=== PATIENT | male | born 1985 | race Caucasian/White ===

== ENCOUNTER 2024-11-03 19:21 | Inpatient (IN) | payer OTHER, SELFPAY ==
--- OUTSIDE RECORDS SUMMARY | 2024-11-03 19:27 | XMS_ITS | Clinical Summary ---
Author Organization [facility] [employer] [facility] it Address [address] [place] [address] Care Team Providers Care Therapeutic Radiologist Name Role Phone Dequan Alicia MD Primary Care Provider [phone] Social History Tobacco Use Types Packs/Day Years Used Date Smoking Tobacco: Never Assessed Sex and Gender Information Value Date Recorded Sex Assigned at Not on file Legal Sex Male 8:26 AM EST Gender Identity Not on file Sexual Orientation Not on file Plan of Treatment Health Maintenance Due Date Last Done Comments DTaP,Tdap,and Td Vaccines (1 - Tdap) 2002 Hepatitis B Vaccines (1 of 3 - 19+ 3-dose series) 2002 Cholesterol Screening (Lipid Panel) 10/12/2023 Depression Screening 10/12/2023 HIV Screening 10/12/2023 Hepatitis C Screening 10/12/2023 Social Influencers of Health Screening 10/12/2023 COVID-19 Vaccine (2023-2 5 season) 2024 Influenza Vaccine (#1) 2024 HIB Vaccines Aged Out No longer eligi ble based on patient's age to complete this topic HPV Vaccines Aged Out No longer eligi ble based on patient's age to complete this topic Hepatitis A Vaccines Aged Out No long er eligible based on patient's age to complete this topic IPV Vaccines Aged Out No longer eligi ble based on patient's age to complete this topic MMR Vaccines Aged Out No longer eligi ble based on patient's age to complete this topic Meningococcal ACWY Vaccine Aged Out N o longer eligible based on patient's age to complete this topic Meningococcal B Vacine Aged Out No lo nger eligible based on patient's age to complete this topic Pneumococcal Vaccine: Pediat rics (0 to 5 Years) and At-Risk Patients (6 to 64 Years) Aged Out No longer eligible b ased on patient's age to complete this topic RSV Immunization Patients Un jeet 20 months Aged Out No longer eligible b ased on patient's age to complete this topic Varicella Vaccines Aged Out No longer eligible based on patient's age to complete this topic Care Teams Therapeutic Radiologist Relationship Specialty Start Date End Date Dequan Alicia MD [address] [place] [address] [address] [place] [address] PCP - General Internal Medicine 07/29/16
[2024-11-03 21:10] VITALS: BMI 29.2
[2024-11-03 21:12] VITALS: BP 124/82; PULSE 85; RESP 16; TEMP 37.3; O2SAT 99
[2024-11-03] MEDS: hydrOXYzine HCL 25 MG TABLET PO (23:37)
[2024-11-03] MEDS: traZODone HCL 50 MG TABLET PO (23:37)
--- NOTE | 2024-11-04 01:42 | PC.ADMIT ---
Parish Mccloud is a 39 yo male, admitted from [facility] to M3 unit on a CV for the treatment of unspecified depressive disorder and SI. Pt has a medical Hx of HTN, Heart failure, Mycobacterium avium infection, non ischemic cardiomyopathy and anal fistula x2. He was originally diagnosed of HIV suddenly in March, loss his job and his health rapidly declined.He was presented to [facility] crisis after endorsing SI with a plan to OD on medications. Parish has been experiencing worsening depression, insomnia and aggression over the last few weeks. On unit assessment, Pt was calm and cooperative, A & O x4, Affect is anxious, denies SI/HI/AV/VH. He states I cannot kill myself, I was only frustrated b/c I loss my job and I have no money to take care of myself . Safety/skin check shows a wound draining clear fluids on the Lt pelvic area and anal fistula x2. Pt was very reluctant to stay on the unit b/c his bed was not comfortable for him. He states I have cardiac dx/conditions and I need a special/cardiac bed. He was however encouraged to sleep on the bed with his head raised/supported with pillows. He signed/filled some admission papers including menu, some release of informations forms, and understanding of valuables. Hospitalist contacted for consultation, treatment plans and safety tools initiated. Pt is a high fall risks and ambulates with a walker, he is placed on 5 minutes safety check.
--- NOTE | 2024-11-04 06:42 | HO.PM.IMCN ---
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 He presentied voluntarily via EMS to [facility] ED after endorsing SI. He has been experiencing worsening depression, insomnia, and aggression over the last few weeks. He has been severely depressed over the last 2 months due to his medical problems and being in/out of the hospital very often. He was originally diagnosed with HIV suddenly in March 2024, lost his job at [employer], and his health has rapidly declined and is on multiple medications. His mood have been low, he has only been sleeping 1-2 hours per night, and his appetite has been poor. At one point over the last few weeks he locked himself in his room for 5 days and didn't want to leave. He is also endorsing significant anxiety with racing thoughts keeping him up at night. He has occasional panic attacks, his last was 10 days ago during which he experienced shortness of breath, tunnel vision, and passed out.? ? He is endorsing active suicidal ideation with a plan to overdose on his medications. The thoughts are persistent and have worsened in recent days. He is unsure how likely he would be to act on it if he were to return home but is looking for more help as he feels like everything is too overwhelming right now. No history of suicide attempts or previous psychiatric hospitalizations. Is currently taking Lexapro and Trazodone as prescribed, feels like they helped at first but are not helping now.? ? Denying any HI or AVH.? In addition to his SI the patient was reporting daily headaches it is primarily on his forehead but radiates to the middle of his head. He describes it as a pressure, 9 of 10 in severity, and different from his usual headaches. No migraine history and not associated with photo or phonophobia. Has not tried taking any medications for pain relief. No head trauma.? ? He is also endorsing a 2 month history of vomiting after meals, worsened over the last month. He vomits immediately after eating almost all solid food. Vomit appears as food and is nonbloody and nonbilious. Better at keeping liquids down. Still having regular bowel movements which are nonbloody. No abdominal pain or fevers. While evaluating this morning, didn't offer any other history, still endorses depression and suicidal thoughts, no headache mentioned at that time and was not vomitting, no shortness of breath. He uses a walker to ambulate ? 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 Home medications: from [facility] records Home MedicationsamLODIPine 2.5 mg oral tablet, See Instructions, 5 refills Asmanex HFA 100 mcg/inh inhalation aerosol, 2 puffs, Inhalation, 2 times a day, 6 refills benzonatate 100 mg oral capsule, 100 mg= 1 capsule, By Mouth, 3 times a day bictegravir/emtricitabine/tenofovir 50 mg-200 mg-25 mg oral tablet, 1 tablet, By Mouth, Daily, 3 refills clotrimazole 1% topical cream, 1 application, Topically, 2 times a day, 1 refills dapagliflozin 10 mg oral tablet, 10 mg= 1 tablet, By Mouth, Daily, 11 refills diclofenac 1% topical gel, 1 application, Topically, 4 times a day, 3 refills docusate sodium 100 mg oral capsule, 100 mg= 1 capsule, By Mouth, 2 times a day, PRN, 3 refills Entresto 97 mg-103 mg oral tablet, See Instructions, 5 refills escitalopram 10 mg oral tablet, 10 mg= 1 tablet, By Mouth, Daily, 3 refills ethambutol 400 mg oral tablet, 1200 mg= 3 tablet, By Mouth, Daily, 1 refills furosemide 20 mg oral tablet, 1 capsule, By Mouth, Daily in AM, 3 refills ivabradine 5 mg oral tablet, See Instructions, 2 refills metoprolol 200 mg oral tablet, extended release, See Instructions, 1 refills MiraLax oral powder for reconstitution, 17 Gm, By Mouth, Daily, 5 refills Protonix 40 mg oral delayed release tablet, 40 mg, By Mouth, Daily, 3 refills spironolactone 25 mg oral tablet, 25 mg= 1 tablet, By Mouth, Daily, 3 refills sulfamethoxazole-trimethoprim 800 mg-160 mg oral tablet, 1 tablet, By Mouth, Daily, 3 refills traZODone 50 mg oral tablet, 50 mg= 1 tablet, By Mouth, Daily at bedtime, 3 refills Ventolin HFA 108 mcg/inh inhalation aerosol with adapter, 2 puffs, Inhalation, 4 times a day, PRN, 11 refills Healthcare maintenance: Vaccines: -Influenza: 07/2024 -COVID: booster 07/2024 -Pneumonia: PCV 20 07/2024 -Meningitis: 1st?dose 08/03/2024? -Hep B:?immune? -Hep A:?HAV Ab neg (07/2024)???needs vaccine Cancer screening:? -Will need anal Ca screening - defer to colorectal l? Review of Systems Review of Systems: Gen: no fever, no headache, Resp: no sob, no cough CV: no chest, no NICOLE, no leg edema GI: No n/v at that time, gets vomiting with meals at times, no abd pain Neuro: No confusion Yes all other systems are reviewed and are negative PMFSH Social History Household Members: Family Housing: Apartment Do you presently have visiting nurse or other home services: No Patient Tobacco Use Status: Current everyday Tobacco user Tobacco use type: Cigarette Smoked in Last 30 Days: Yes e-Cigarette/Vaping Use: Never Used Patient Interested in Nicotine Replacement: Yes Patient Given Instructions on How to Stop Smoking: No Second Hand Smoke Exposure: No Use of substances other than those prescribed or required for medical reasons: No Currently Displaying Signs/Symptoms of Drug Intoxication Withdrawal: No Any prior treatment program specific to substance use: No Have you been hit, kicked, punched, or otherwise hurt by someone within the past year? If so, by whom?: No Do you feel safe in your current relationship?: No Current Relationship Is there a partner from a previous relationship who is making you feel unsafe now?: No Are you made to feel afraid or neglected: No Advance Directives: No Advance Directives Information Provided: No Do you have thoughts of harming others: None Do you have a plan to hurt others: No Plan Recently lost weight without trying: No Eating poorly because of decreased appetite: Yes Nutrition Risks: No Nutritional Risk Poor oral hygiene: No Meds Allergies Allergy/AdvReac Type Severity Reaction Status Date / Time acetaminophen [From Percocet] Allergy Anaphylaxis Verified 11/03/24 20:52 oxycodone [From Percocet] Allergy Anaphylaxis Verified 11/03/24 20:52 Active Medications: Current Medications Al Hydroxide/Mg Hydroxide (Magnesium Hydrox/Alum Hydrox 30 Ml Oral.Susp) 30 ml PO Q6H PRN PRN Reason: Heartburn/Nausea Albuterol Sulfate (Albuterol Sulfate 90 Mcg 8 Gm Inhaler) 2 puff INHALE Q4H PRN PRN Reason: Shortness of Breath/Wheezing Amlodipine Besylate (Amlodipine Besylate 5 Mg Tablet) 5 mg PO DAILY [facility]; Protocol Azithromycin (Azithromycin 500 Mg Tablet) 500 mg PO DAILY [facility] Bictegravir/Emtricitabine/Tenofovir (Bictegrav/Emtricit/Tenofov Ala Tablet) 1 tab PO DAILY [facility] Clotrimazole (Clotrimazole 1 % Cream 15 Gm Tube) 1 appl TOPICAL BID [facility]; Protocol Docusate Sodium (Docusate Sodium 100 Mg Capsule) 100 mg PO DAILY [facility] Last Admin: 11/04/24 01:09 Dose: Not Given Escitalopram Oxalate (Escitalopram Oxalate 20 Mg Tablet) 100 mg PO DAILY [facility] Furosemide (Furosemide 20 Mg Tablet) 20 mg PO DAILY [facility]; Protocol Hydroxyzine HCl (Hydroxyzine Hcl 25 Mg Tablet) 25 mg PO Q6H PRN PRN Reason: mild anxiety Last Admin: 11/03/24 23:37 Dose: 25 mg Lidocaine (Lidocaine 4 % Patch Adh..Patch) 1 patch TRANSDERMA DAILY [facility] Magnesium Hydroxide (Milk Of Magnesia 30 Ml Oral.Susp) 30 ml PO DAILY PRN PRN Reason: Constipation Metoprolol Succinate (Metoprolol Succinate Er 100 Mg Tab.Er.24h) 200 mg PO DAILY [facility]; Protocol Morphine Sulfate (Morphine Sulfate Immed Release 15 Mg Tablet) 15 mg PO Q4H PRN PRN Reason: Pain, Moderate(Pain Scale 4-6) Nicotine (Nicotine 21 Mg Patch.Td24) 21 mg TRANSDERMA DAILY PRN PRN Reason: smoking cessation Nicotine Polacrilex (Nicotine Polacrilex 2 Mg Gum) 4 mg BUCCAL Q2H PRN PRN Reason: Nicotine Cravings Nicotine Polacrilex (Nicotine Polacrilex 2 Mg Gum) 4 mg BUCCAL Q2H PRN PRN Reason: SMOKING CESSATION Non-Formulary Medication (Dapagliflozin Propanediol [Farxiga]) 10 mg PO DAILY [facility] Non-Formulary Medication (Diclofenac Sodium [Arthritis Pain (Diclofenac)]) 1 gm TOPICAL QID PRN PRN Reason: Pain, Moderate Non-Formulary Medication (Ethambutol) 400 mg PO 1XD [facility] Non-Formulary Medication (Ivabradine) 5 mg PO 1XD [facility] Non-Formulary Medication (Mometasone [Asmanex Hfa]) 100 mcg INHALE NEEDED [facility] Olanzapine (Olanzapine 5 Mg Tablet) 5 mg PO TID PRN PRN Reason: agitation Omeprazole (Omeprazole 20 Mg Capsule.Dr) 20 mg PO DAILY [facility] Polyethylene Glycol (Polyethylene Glycol 3350 17 Gm Powd.Pack) 17 gm PO BID [facility] Sacubitril/Valsartan (Sacubitril/Valsartan 97/103 1 Tab Tablet) 1 tab PO DAILY [facility]; Protocol Spironolactone (Spironolactone 25 Mg Tablet) 25 mg PO DAILY [facility]; Protocol Trazodone HCl (Trazodone Hcl 50 Mg Tablet) 50 mg PO BEDTIME MRX1 PRN PRN Reason: Insomnia Last Admin: 11/03/24 23:37 Dose: 50 mg Trazodone HCl (Trazodone Hcl 50 Mg Tablet) 50 mg PO BEDTIME [facility] Trimethoprim/Sulfamethoxazole (Sulfamethox/Trimeth 800/160 Tablet) 1 tab PO DAILY [facility] Home Medications ?Medication ?Instructions ?Recorded ?Confirmed ?Last Taken ?Type albuterol sulfate 90 mcg/actuation 90 mcg inhalation NEEDED 11/03/24 11/03/24 Unknown History aerosol inhaler (Ventolin HFA) amlodipine 5 mg tablet (Norvasc) 5 mg PO DAILY 11/03/24 11/03/24 Unknown History azithromycin 500 mg tablet 500 mg PO DAILY 11/03/24 11/03/24 Unknown History (Zithromax) bictegravir 50 mg-emtricitabine 50 tab PO DAILY 11/03/24 11/03/24 Unknown History 200 mg-tenofovir alafenam 25 mg tablet (Biktarvy) clotrimazole 1 % topical cream 1 appl topical BID 11/03/24 11/03/24 1 Day Ago History (Clotrimazole AF) ~11/02/24 dapagliflozin propanediol 10 mg 10 mg PO DAILY 11/03/24 11/03/24 Unknown History tablet (Farxiga) diclofenac sodium 1 % topical gel 1 g topical QID PRN Pain, Moderate 11/03/24 11/03/24 Unknown History (Arthritis Pain (diclofenac)) docusate sodium 100 mg capsule 100 mg PO 1XD 11/03/24 11/03/24 Unknown History (Colace) escitalopram oxalate 10 mg tablet 100 mg PO DAILY 11/03/24 11/03/24 Unknown History (Lexapro) ethambutol 400 mg tablet 400 mg PO 1XD 11/03/24 11/03/24 Unknown History furosemide 20 mg tablet 20 mg PO DAILY 11/03/24 11/03/24 Unknown History ivabradine 5 mg tablet 5 mg PO 1XD 11/03/24 11/03/24 Unknown History lidocaine 5 % topical patch 1 patch topical DAILY 11/03/24 11/04/24 Unknown History (DermacinRx Lidocan) metoprolol succinate 200 mg 200 mg PO DAILY 11/03/24 11/03/24 Unknown History tablet,extended release 24 hr (Toprol XL) mometasone 100 mcg/actuation HFA 100 mcg inhalation NEEDED 11/03/24 11/03/24 Unknown History aerosol inhaler (Asmanex HFA) morphine 15 mg immediate release 15 mg PO NEEDED 11/03/24 11/03/24 Unknown History tablet nicotine (polacrilex) 4 mg gum 4 mg PO Q2-3H PRN Smoking Cessation 11/03/24 11/03/24 Unknown History pantoprazole 40 mg tablet,delayed 40 mg PO DAILY 11/03/24 11/03/24 Unknown History release (Protonix) polyethylene glycol 3350 17 17 g PO BID 11/03/24 11/03/24 Unknown History gram/dose oral powder (Miralax) sacubitril 97 mg-valsartan 103 mg 1 tab PO 1XD 11/03/24 11/04/24 Unknown History tablet (Entresto) spironolactone 25 mg tablet 25 mg PO DAILY 11/03/24 11/03/24 Unknown History (Aldactone) sulfamethoxazole 800 160 tab PO DAILY 11/03/24 11/03/24 Unknown History mg-trimethoprim 160 mg tablet (Bactrim DS) trazodone 50 mg tablet 50 mg PO BEDTIME 11/03/24 11/03/24 Unknown History Physical Exam Vital Signs and Narrative: Vital Signs: Last Vital Signs Temp 99.1 F 11/03/24 21:12 Pulse 85 11/03/24 21:12 Resp 16 11/03/24 21:12 BP 124/82 11/03/24 21:12 Pulse Ox 99 11/03/24 21:12 O2 Del Method Room Air 11/03/24 21:12 BMI result Body Mass Index 29.2 Const: Other: Gen: no distress, alert and oriented x 3 HEENT: No pharyngitis or? thrush CV: regular rate, no murmurs/rubs, regular, trace pedal edema Pulm: breathing comfortably, no rales Extrem: trace leg edema Gait: antalgic with walker Skin: midline buttock area fistula noted with mild non-purulent drainage, a righ groin small open are with mild non purulent drainage Neuro: no focal deficit, CN 2 to 12 intact Psych: affect mildly depressed, endorses SI Results Labs 11/04/24 07:57 Assessment and Plan (1) Major depression, recurrent: Status: Acute (2) HIV (human immunodeficiency virus infection): Status: Acute (3) Cardiomyopathy: Status: Acute Plan 39-year-old male with a history of HIV/AIDS (diagnosed 04/2024 with CD4 36 and Pneumocystis pneumonia; rapid immune reconstitution on ART), complicated by localized right groin MAC lymphadenitis IRIS, HIV-associated cardiomyopathy/HFrEF (EF 35%), phimosis status post recent circumcision, anal fistula, GERD, and post-herpetic neuralgia. Presently admitted with depression/anxiety with suicidal ideation. While he has a complicated medical history, there are no acute issues at this time. He should continue medical management as prior to hospitalization and follow up with specialists as previously planned on an outpatient basis unless circumstances change. 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 -AFB Cx 08/29/ confirmed MAC.? Presumed susceptible to azithro based on clarithro susceptibilty and clinical response.? Note unable to test for ethambutol susceptibility.? -Continue??Azithromycin 500mg qD plus Ethambutol 15mg/kg once daily?(dosed as 3x 400mg tablets plus 1x 100mg tablets, taken together, once daily, total daily dose = 1,300mg).??Started 08/07/2024.? -Sees optometry monthly at [facility] to monitor for signs of ethambutol toxicity.? -Treatment course is typically a minimum of 12 months (and minimally CD4 > 100 x 6 mos on ART) #HIV/AIDS (dx 04/20/2024 w/CD4 36 and?pneumocystis) #Rapid immune reconstitution Syndrome (IRIS) -At diagnosis: CD4 36%, VL 240K.? 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 -ART: Biktarvy (FTC/TAF/BIC) started 04/2024.? Incredibly, HIV VL down to 150?(05/16) from?pre-tx baseline of?239,000 (04/20) in just 4 weeks; during the same time, CD4 up?to 261 (05/16)?from 36 (04/20).??? -Hx severe pneumocystis PNA 04/2024.??Discontinue 2ary ppx for PJP?(TMP-SMX DS qD)?given CD4 > 200 for >3 mos w/ virologic suprpession on ART -Continue services of [facility] for blister packing and delivery of all meds.? [place] in [place] 05/2024.? -Income: [place] through 09/2023; I completed [facility] paperwork? to extend for an additional 6 mos.??Applying for?long-term disability with social security;?we faxed necessary med records to social security today -Housing: following [facility], since 06/2024.? Diagnosis note provided 07/2024. #Phimosis -S/p uncomplicated circumcision, 09/2024. Healing as expected #Hx of anal fistulae w/ mycobacterium avium: -EUA 05/2023 for intersphincteric fistula in posterior midline and superficial fistula in posterior lateral with fistulotomy and marsupialization x 2.??Path showed?Mycobacterium avium;?see above? -MRI Pelvis 06/2024 showed no drainable abscess nor mass.? -Colorectal follow-up 08/2024: plan for colonoscopy to eval infection v. neoplasm followed #Post-herpetic neuralgia: -Lidocaine patch and morphine for pain at site of prior zoster #Non-ischemic cardiomyopathy associated with HIV, EF around 35% -Continue meds Norvasc, metoprolol, Aldactone, lasix, jardiance, entresto will
[2024-11-04 07:50] VITALS: BP 113/76; PULSE 84; RESP 16; TEMP 36.9; O2SAT 97
[2024-11-04 08:45] LABS: Estimated Average Glucose 91 mg/dL; Hemoglobin A1C 91.7633 umol/L; Hemoglobin A1c % 4.8 % (<6.0); Total Hemoglobin (HGBA1C) 3128.3282 umol/L
[2024-11-04 09:01] VITALS: BP 113/78
[2024-11-04] MEDS: Furosemide 20 MG TABLET PO (09:01)
[2024-11-04 09:02] VITALS: BP 113/78
[2024-11-04] MEDS: Sulfamethox/Trimeth 800/160 TABLET 1 TAB PO (09:02)
[2024-11-04] MEDS: Omeprazole 20 MG CAPSULE.DR PO (09:02)
[2024-11-04] MEDS: Spironolactone 25 MG TABLET PO (09:02)
[2024-11-04] MEDS: amLODIPine Besylate 5 MG TABLET PO (09:02)
[2024-11-04] MEDS: Escitalopram Oxalate 20 MG TABLET 100 MG PO (09:02)
[2024-11-04 09:03] LABS: Alanine Aminotransferase 20 U/L (0-40); Albumin Level 3.8 g/dL (3.5-5.0); Alkaline Phosphatase 82 U/L (39-117); Anion Gap 14 (12-20); Aspartate Amino Transferase 24 U/L (5-37); Bilirubin Total 0.7 mg/dL (0.0-1.0); Blood Urea Nitrogen 20 mg/dL (9-16); Calcium 9.3 mg/dL (8.4-10.2); Carbon Dioxide 24 mmol/L (22-29); Chloride 103 mmol/L (96-108); Cholesterol 179 mg/dL (<200); Creatinine Clr Calc Pharmacy 94.8; Estimated Glomerular Filt Rate > 60; Glucose Random 95 mg/dL (60-115); HDL Cholesterol 27 mg/dL (>40); LDL Cholesterol Calculated 112 mg/dL (<100); Potassium 4.3 mmol/L (3.3-5.1); Sodium 137 mmol/L (135-145); Triglycerides 200 mg/dL (<150)
[2024-11-04] MEDS: Docusate Sodium 100 MG CAPSULE PO (09:03)
[2024-11-04 10:24] VITALS: BP 118/74; PULSE 76
[2024-11-04] MEDS: Sacubitril/Valsartan 97/103 1 TAB TABLET PO (10:25)
[2024-11-04] MEDS: Empagliflozin 10 MG TABLET PO (10:25)
[2024-11-04] MEDS: Metoprolol Succinate ER 100 MG TAB.ER.24H 200 MG PO (10:25)
[2024-11-04] MEDS: Azithromycin 500 MG TABLET PO (10:25)
--- NOTE | 2024-11-04 10:38 | P.HPPS_ITS ---
HPI Date of Service: 11/04/24 Chief Complaint: Unspec. Depressive Disorder Unspec Anxiety Dis Sources of Information: patient interviewed, chart reviewed and crisis/core team assessment reviewed HPI Subjective Notes: Conditional Voluntary Narrative: 39 yo male, lives with his mother. He is currently on medical leave from work. Patient presented to [facility] with SI with plan to OD on medications. Patient has been increasingly depressed in the last few months. In March he developed a pneumonia and had a lengthy hospitalization at [facility]. During the admission was diagnosed with HIV. He has a cardiomyopathy as well. Since then he has been in and out of the hospital and he has had to be on a medical leave from his work where he worked for 10 years or so. His symptoms include depressed mood, decreased sleep, increased irritability, decreased appetite, anhedonia, and SI. He has had increased anxiety and panic. Denies hallucinations. He was [place] in [place] [facility] Lexapro and Trazodone were increased. Since coming into the hospital he reports he is feeling somewhat better and was able to sleep with the increase in Trazodone. Denies current active SI. He has been enrolled in therapy and was recently referred to the psychiatrist at the agency he attends. Past Psychiatric History: No inpatient hospitalizations Engaged in OP therapy Recently referred to outpatient psychiatry No suicide attempts Medical Evaluation Reviewed: Yes PMFSH Family History: Denied Social History: Lives with his mother. Single. Grew up in [place]. Moved to the [facility] 22 years ago. Worked at a [employer] for 10 years until the summer of 2024 when his health deteriorated. On a medical leave. Substance History: Denied Diagnostics Vital Signs (24Hr): Vital Signs - 24 hr 11/03/24 21:12 11/04/24 07:50 11/04/24 09:01 Temperature 99.1 F 98.5 F Pulse Rate 85 84 Respiratory Rate 16 16 Blood Pressure 124/82 113/76 113/78 Pulse Oximetry 99 97 Oxygen Delivery Method Room Air Room Air 11/04/24 09:02 11/04/24 10:24 Temperature Pulse Rate 76 Respiratory Rate Blood Pressure 113/78 118/74 Pulse Oximetry Oxygen Delivery Method BMI result Body Mass Index 29.2 Labs 11/04/24 07:57 Labs: Laboratory Results - last 48 hr 11/04/24 07:57 Sodium 137 Potassium 4.3 Chloride 103 Carbon Dioxide 24 Anion Gap 14 BUN 20 H Creatinine 1.17 Estim Creat Clear Calc 94.8 Estimated GFR > 60 Random Glucose 95 Estimat Average Glucose 91 Hemoglobin A1c % 4.8 Calcium 9.3 Total Bilirubin 0.7 AST 24 ALT 20 Alkaline Phosphatase 82 Total Protein 8.0 Albumin 3.8 Triglycerides 200 H Cholesterol 179 LDL Cholesterol, Calc 112 H HDL Cholesterol 27 L TSH 1.40 Meds/Allergies Meds Home Medications ?Medication ?Instructions ?Recorded ?Confirmed ?Type albuterol sulfate 90 mcg/actuation 90 mcg inhalation NEEDED 11/03/24 11/03/24 History aerosol inhaler (Ventolin HFA) amlodipine 5 mg tablet (Norvasc) 5 mg PO DAILY 11/03/24 11/03/24 History azithromycin 500 mg tablet 500 mg PO DAILY 11/03/24 11/03/24 History (Zithromax) bictegravir 50 mg-emtricitabine 50 tab PO DAILY 11/03/24 11/03/24 History 200 mg-tenofovir alafenam 25 mg tablet (Biktarvy) clotrimazole 1 % topical cream 1 appl topical BID 11/03/24 11/03/24 History (Clotrimazole AF) dapagliflozin propanediol 10 mg 10 mg PO DAILY 11/03/24 11/03/24 History tablet (Farxiga) diclofenac sodium 1 % topical gel 1 g topical QID PRN Pain, Moderate 11/03/24 11/03/24 History (Arthritis Pain (diclofenac)) docusate sodium 100 mg capsule 100 mg PO 1XD 11/03/24 11/03/24 History (Colace) escitalopram oxalate 10 mg tablet 100 mg PO DAILY 11/03/24 11/03/24 History (Lexapro) ethambutol 400 mg tablet 400 mg PO 1XD 11/03/24 11/03/24 History furosemide 20 mg tablet 20 mg PO DAILY 11/03/24 11/03/24 History ivabradine 5 mg tablet 5 mg PO 1XD 11/03/24 11/03/24 History lidocaine 5 % topical patch 1 patch topical DAILY 11/03/24 11/04/24 History (DermacinRx Lidocan) metoprolol succinate 200 mg 200 mg PO DAILY 11/03/24 11/03/24 History tablet,extended release 24 hr (Toprol XL) mometasone 100 mcg/actuation HFA 100 mcg inhalation NEEDED 11/03/24 11/03/24 History aerosol inhaler (Asmanex HFA) morphine 15 mg immediate release 15 mg PO NEEDED 11/03/24 11/03/24 History tablet nicotine (polacrilex) 4 mg gum 4 mg PO Q2-3H PRN Smoking Cessation 11/03/24 11/03/24 History pantoprazole 40 mg tablet,delayed 40 mg PO DAILY 11/03/24 11/03/24 History release (Protonix) polyethylene glycol 3350 17 17 g PO BID 11/03/24 11/03/24 History gram/dose oral powder (Miralax) sacubitril 97 mg-valsartan 103 mg 1 tab PO 1XD 11/03/24 11/04/24 History tablet (Entresto) spironolactone 25 mg tablet 25 mg PO DAILY 11/03/24 11/03/24 History (Aldactone) sulfamethoxazole 800 160 tab PO DAILY 11/03/24 11/03/24 History mg-trimethoprim 160 mg tablet (Bactrim DS) trazodone 50 mg tablet 50 mg PO BEDTIME 11/03/24 11/03/24 History Allergies Allergies Allergy/AdvReac Type Severity Reaction Status Date / Time acetaminophen [From Percocet] Allergy Anaphylaxis Verified 11/03/24 20:52 oxycodone [From Percocet] Allergy Anaphylaxis Verified 11/03/24 20:52 Mental Status Exam Mental Status Exam Narrative: General appearance: casually appropriate dress. Good hygiene.? Eye contact: WNL. Musculoskeletal: Normal muscle strength/tone, Normal gait and station, No abnormal involuntary movements like tremors, EPS or dyskinesia. No psychomotor agitation or retardation. Normal posture.??? Manner/behavior: cooperative and not guarded Speech:? Fluent, with normal rate, tone and volume. Language: No receptive or expressive language impairment? Mood: It's better. Affect: constricted range, congruent to mood and without lability? Thought process/associations: Linear with no flight of ideas or loose associations.?? Thought content:?No delusions or paranoia.?? Hallucinations: No auditory, visual or other hallucinations No?flashbacks, nightmares or dissociation? ? Suicidality/self-destructive behavior: None at the hospitall.? ? Homicidally/violence: none.? Reliability: good.? ? Judgment: preserved.? ? Insight: preserved Cognition: Alert and oriented to time, place and person. Attention, concentration and fund of knowledge are normal.? Impulse control and emotional regulation: preserved. Intelligence estimate: average.? Assessment & Plan Assessment & Plan (1) Major depression, recurrent: Status: Acute Code(s): F33.9 - Major depressive disorder, recurrent, unspecified (2) Adjustment disorder with mixed anxiety and depressed mood: Status: Acute Code(s): F43.23 - Adjustment disorder with mixed anxiety and depressed mood Plan 39 yo man admitted with suicidal ideation with plan to OD in the setting of worsening health and increasing disabling physical symptoms. PLAN: - Admit to inpatient psychiatry - CV - Collateral information from family and providers. - Milieu treatment and group therapy. - Medications: Lexapro recently increased and Trazodone recently increased while he was admitted to the ED at [facility]. Will continue for now. He says he slept better. - Social work evaluation. - Disposition planning. Patient educated on: diagnosis and medication risk/benefits Reason for continued inpatient stay Substantial Risk for: harm to self, inability to function, rapid decompensation and med/psych decompensation Statement Statement: I have reviewed the history and physical and performed a pertinent examination on my patient. No changes have occurred unless specified. If the History and Physical was not performed prior to admission, the Hospitalist's service will be consulted for completing the admission physical. Time Spent With Patient Time: Total time managing care of this patient today ____ minutes.
[2024-11-04] MEDS: Bictegrav/Emtricit/Tenofov Ala TABLET 1 TAB PO (11:16)
[2024-11-04 20:00] VITALS: BP 129/75; PULSE 83; RESP 16; TEMP 37.1; O2SAT 98
[2024-11-04] MEDS: traZODone HCL 100 MG TABLET PO (21:33)
[2024-11-04] MEDS: traZODone HCL 50 MG TABLET PO (22:27)
[2024-11-05 07:15] VITALS: BP 113/63; PULSE 82; RESP 14; TEMP 37; O2SAT 97
[2024-11-05] MEDS: Sacubitril/Valsartan 97/103 1 TAB TABLET PO (08:46)
[2024-11-05] MEDS: Escitalopram Oxalate 20 MG TABLET PO (08:46)
[2024-11-05] MEDS: Sulfamethox/Trimeth 800/160 TABLET 1 TAB PO (08:46)
[2024-11-05] MEDS: Spironolactone 25 MG TABLET PO (08:46)
[2024-11-05] MEDS: Omeprazole 20 MG CAPSULE.DR PO (08:46)
[2024-11-05] MEDS: amLODIPine Besylate 5 MG TABLET PO (08:46)
[2024-11-05] MEDS: Empagliflozin 10 MG TABLET PO (08:46)
[2024-11-05] MEDS: Furosemide 20 MG TABLET PO (08:46)
[2024-11-05] MEDS: Docusate Sodium 100 MG CAPSULE PO (08:47)
[2024-11-05] MEDS: Azithromycin 500 MG TABLET PO (08:47)
[2024-11-05] MEDS: Metoprolol Succinate ER 100 MG TAB.ER.24H 200 MG PO (08:47)
[2024-11-05] MEDS: Bictegrav/Emtricit/Tenofov Ala TABLET 1 TAB PO (08:47)
[2024-11-05] MEDS: Clotrimazole 1 % Cream 15 GM TUBE 1 APPL TOPICAL (09:25)
--- NOTE | 2024-11-05 11:09 | HO.PSYCHPN ---
Subjective Subjective Date of Service: 11/05/24 Reason For Visit: Unspec. Depressive Disorder Unspec Anxiety Dis Interim History: Reports his mood has been better since arriving and also because he has been sleeping better. Hoping for a quick discharge. He denied SI. He is intermittently visible on the unit. Utilizing walker. Tolerating increase in Lexapro and Trazodone well. Didn't take Miralax and educated about need for soft stool with the history of anal fistula. Denies SI/HI/AVH. Review of Systems Review of Systems Gen: no fever, no headache, Resp: no sob, no cough CV: no chest, no NICOLE, no leg edema GI: No n/v at that time, gets vomiting with meals at times, no abd pain Neuro: No confusion Yes all other systems are reviewed and are negative Mental Status Exam Mental Status Exam Narrative: General appearance: casually appropriate dress. Good hygiene.? Eye contact: WNL. Musculoskeletal: Normal muscle strength/tone, Normal gait and station, No abnormal involuntary movements like tremors, EPS or dyskinesia. No psychomotor agitation or retardation. Normal posture.??? Manner/behavior: cooperative and not guarded Speech:? Fluent, with normal rate, tone and volume. Language: No receptive or expressive language impairment? Mood: It's better. Affect: constricted range, congruent to mood and without lability? Thought process/associations: Linear with no flight of ideas or loose associations.?? Thought content:?No delusions or paranoia.?? Hallucinations: No auditory, visual or other hallucinations No?flashbacks, nightmares or dissociation? ? Suicidality/self-destructive behavior: None at the hospitall.? ? Homicidally/violence: none.? Reliability: good.? ? Judgment: preserved.? ? Insight: preserved Cognition: Alert and oriented to time, place and person. Attention, concentration and fund of knowledge are normal.? Impulse control and emotional regulation: preserved. Intelligence estimate: average.? Diagnostics Vital Signs (24Hr): Vital Signs - 24 hr 11/04/24 20:00 11/05/24 07:15 Temperature 98.7 F 98.6 F Pulse Rate 83 82 Respiratory Rate 16 14 Blood Pressure 129/75 113/63 Pulse Oximetry 98 97 Oxygen Delivery Method Room Air Room Air BMI result Body Mass Index 29.2 Labs 11/04/24 07:57 Labs: Laboratory Results - last 48 hr 11/04/24 07:57 Sodium 137 Potassium 4.3 Chloride 103 Carbon Dioxide 24 Anion Gap 14 BUN 20 H Creatinine 1.17 Estim Creat Clear Calc 94.8 Estimated GFR > 60 Random Glucose 95 Estimat Average Glucose 91 Hemoglobin A1c % 4.8 Calcium 9.3 Total Bilirubin 0.7 AST 24 ALT 20 Alkaline Phosphatase 82 Total Protein 8.0 Albumin 3.8 Triglycerides 200 H Cholesterol 179 LDL Cholesterol, Calc 112 H HDL Cholesterol 27 L TSH 1.40 Medications Medications Current Medications Al Hydroxide/Mg Hydroxide (Magnesium Hydrox/Alum Hydrox 30 Ml Oral.Susp) 30 ml PO Q6H PRN PRN Reason: Heartburn/Nausea Albuterol Sulfate (Albuterol Sulfate 90 Mcg 8 Gm Inhaler) 2 puff INHALE Q4H PRN PRN Reason: Shortness of Breath/Wheezing Amlodipine Besylate (Amlodipine Besylate 5 Mg Tablet) 5 mg PO DAILY [facility]; Protocol Last Admin: 11/05/24 08:46 Dose: 5 mg Azithromycin (Azithromycin 500 Mg Tablet) 500 mg PO DAILY [facility] Last Admin: 11/05/24 08:47 Dose: 500 mg Bictegravir/Emtricitabine/Tenofovir (Bictegrav/Emtricit/Tenofov Ala Tablet) 1 tab PO DAILY [facility] Last Admin: 11/05/24 08:47 Dose: 1 tab Clotrimazole (Clotrimazole 1 % Cream 15 Gm Tube) 1 appl TOPICAL BID [facility]; Protocol Last Admin: 11/05/24 09:25 Dose: 1 appl Docusate Sodium (Docusate Sodium 100 Mg Capsule) 100 mg PO DAILY [facility] Last Admin: 11/05/24 08:47 Dose: 100 mg Empagliflozin (Empagliflozin 10 Mg Tablet) 10 mg PO DAILY [facility] Last Admin: 11/05/24 08:46 Dose: 10 mg Escitalopram Oxalate (Escitalopram Oxalate 20 Mg Tablet) 20 mg PO DAILY [facility] Last Admin: 11/05/24 08:46 Dose: 20 mg Furosemide (Furosemide 20 Mg Tablet) 20 mg PO DAILY [facility]; Protocol Last Admin: 11/05/24 08:46 Dose: 20 mg Hydroxyzine HCl (Hydroxyzine Hcl 25 Mg Tablet) 25 mg PO Q6H PRN PRN Reason: mild anxiety Last Admin: 11/03/24 23:37 Dose: 25 mg Lidocaine (Lidocaine 4 % Patch Adh..Patch) 1 patch TRANSDERMA DAILY [facility] Last Admin: 11/05/24 08:53 Dose: Not Given Magnesium Hydroxide (Milk Of Magnesia 30 Ml Oral.Susp) 30 ml PO DAILY PRN PRN Reason: Constipation Metoprolol Succinate (Metoprolol Succinate Er 100 Mg Tab.Er.24h) 200 mg PO DAILY [facility]; Protocol Last Admin: 11/05/24 08:47 Dose: 200 mg Morphine Sulfate (Morphine Sulfate Immed Release 15 Mg Tablet) 15 mg PO Q4H PRN PRN Reason: Pain, Moderate(Pain Scale 4-6) Nicotine (Nicotine 21 Mg Patch.Td24) 21 mg TRANSDERMA DAILY PRN PRN Reason: smoking cessation Nicotine Polacrilex (Nicotine Polacrilex 2 Mg Gum) 4 mg BUCCAL Q2H PRN PRN Reason: Nicotine Cravings Nicotine Polacrilex (Nicotine Polacrilex 2 Mg Gum) 4 mg BUCCAL Q2H PRN PRN Reason: SMOKING CESSATION Non-Formulary Medication (Diclofenac Sodium [Arthritis Pain (Diclofenac)]) 1 gm TOPICAL QID PRN PRN Reason: Pain, Moderate Non-Formulary Medication (Ethambutol) 400 mg PO 1XD [facility] Non-Formulary Medication (Ivabradine) 5 mg PO 1XD [facility] Non-Formulary Medication (Mometasone [Asmanex Hfa]) 100 mcg INHALE NEEDED [facility] Olanzapine (Olanzapine 5 Mg Tablet) 5 mg PO TID PRN PRN Reason: agitation Omeprazole (Omeprazole 20 Mg Capsule.Dr) 20 mg PO DAILY [facility] Last Admin: 11/05/24 08:46 Dose: 20 mg Polyethylene Glycol (Polyethylene Glycol 3350 17 Gm Powd.Pack) 17 gm PO BID [facility] Last Admin: 11/05/24 08:53 Dose: Not Given Sacubitril/Valsartan (Sacubitril/Valsartan 97/103 1 Tab Tablet) 1 tab PO DAILY [facility]; Protocol Last Admin: 11/05/24 08:46 Dose: 1 tab Spironolactone (Spironolactone 25 Mg Tablet) 25 mg PO DAILY [facility]; Protocol Last Admin: 11/05/24 08:46 Dose: 25 mg Trazodone HCl (Trazodone Hcl 50 Mg Tablet) 50 mg PO BEDTIME MRX1 PRN PRN Reason: Insomnia Last Admin: 11/04/24 22:27 Dose: 50 mg Trazodone HCl (Trazodone Hcl 100 Mg Tablet) 100 mg PO BEDTIME [facility] Last Admin: 11/04/24 21:33 Dose: 100 mg Trimethoprim/Sulfamethoxazole (Sulfamethox/Trimeth 800/160 Tablet) 1 tab PO DAILY [facility] Last Admin: 11/05/24 08:46 Dose: 1 tab Allergies Allergies Allergy/AdvReac Type Severity Reaction Status Date / Time acetaminophen [From Percocet] Allergy Anaphylaxis Verified 11/03/24 20:52 oxycodone [From Percocet] Allergy Anaphylaxis Verified 11/03/24 20:52 Assessment & Plan Assessment & Plan (1) Major depression, recurrent: Status: Acute Code(s): F33.9 - Major depressive disorder, recurrent, unspecified (2) Adjustment disorder with mixed anxiety and depressed mood: Status: Acute Code(s): F43.23 - Adjustment disorder with mixed anxiety and depressed mood Plan Plan 39 yo man admitted with suicidal ideation with plan to OD in the setting of worsening health and increasing disabling physical symptoms. PLAN: - Admit to inpatient psychiatry - CV - Collateral information from family and providers. - Milieu treatment and group therapy. - Medications: Lexapro recently increased and Trazodone recently increased while he was admitted to the ED at [facility]. Will continue for now. He says he slept better. - Social work evaluation. - Disposition planning. 11/05: Continue current management and treatment plan. Reason for continued inpatient stay Substantial Risk for: harm to self, inability to function, rapid decompensation and med/psych decompensation Time Spent With Patient Time: Total time managing care of this patient today ____ minutes.
[2024-11-05 20:00] VITALS: BP 117/60; PULSE 74; RESP 16; TEMP 36.8; O2SAT 96
[2024-11-05] MEDS: traZODone HCL 50 MG TABLET PO (21:34)
[2024-11-05] MEDS: traZODone HCL 100 MG TABLET PO (21:34)
[2024-11-05] MEDS: Capsaicin 0.025% Cream 60 GM TUBE 1 APPL TOPICAL (21:36)
[2024-11-06 07:15] VITALS: BP 119/58; PULSE 95; RESP 16; TEMP 36.9; O2SAT 96
[2024-11-06] MEDS: Escitalopram Oxalate 20 MG TABLET PO (08:36)
[2024-11-06] MEDS: Empagliflozin 10 MG TABLET PO (08:36)
[2024-11-06] MEDS: Sacubitril/Valsartan 97/103 1 TAB TABLET PO (08:36)
[2024-11-06] MEDS: amLODIPine Besylate 5 MG TABLET PO (08:36)
[2024-11-06] MEDS: Metoprolol Succinate ER 100 MG TAB.ER.24H 200 MG PO (08:36)
[2024-11-06] MEDS: Azithromycin 500 MG TABLET PO (08:36)
[2024-11-06] MEDS: Sulfamethox/Trimeth 800/160 TABLET 1 TAB PO (08:37)
[2024-11-06] MEDS: Bictegrav/Emtricit/Tenofov Ala TABLET 1 TAB PO (08:37)
[2024-11-06] MEDS: Docusate Sodium 100 MG CAPSULE PO (08:37)
[2024-11-06] MEDS: Spironolactone 25 MG TABLET PO (08:37)
[2024-11-06] MEDS: Omeprazole 20 MG CAPSULE.DR PO (08:37)
[2024-11-06] MEDS: Furosemide 20 MG TABLET PO (08:37)
[2024-11-06 08:39] VITALS: BP 122/62; PULSE 91
--- NOTE | 2024-11-06 10:38 | PM.PSYDC ---
DS: Providers Provider Date of Service: 11/06/24 Date of admission: 11/03/24 19:21 Date of discharge: 11/07/24 Primary care physician: Evy Kebede MD Consults: 11/03/24 22:15 Consult to Hospitalist Routine Comment: Consulting Provider: [facility] Reason For Exam: admission physical 11/04/24 14:02 Consult to Wound Care Routine Reason for consultation: right groin and buttock fistula DS: Diagnosis Discharge Diagnosis (1) Major depression, recurrent: Status: Acute (2) Adjustment disorder with mixed anxiety and depressed mood: Status: Acute DS: Medications Discharge Medications Home Medications: Home Medications ?Medication ?Instructions ?Recorded ?Confirmed albuterol sulfate 90 mcg/actuation 90 mcg inhalation NEEDED 11/03/24 11/03/24 aerosol inhaler (Ventolin HFA) amlodipine 5 mg tablet (Norvasc) 5 mg PO DAILY 11/03/24 11/03/24 azithromycin 500 mg tablet 500 mg PO DAILY 11/03/24 11/03/24 (Zithromax) bictegravir 50 mg-emtricitabine 50 tab PO DAILY 11/03/24 11/03/24 200 mg-tenofovir alafenam 25 mg tablet (Biktarvy) clotrimazole 1 % topical cream 1 appl topical BID 11/03/24 11/03/24 (Clotrimazole AF) dapagliflozin propanediol 10 mg 10 mg PO DAILY 11/03/24 11/03/24 tablet (Farxiga) diclofenac sodium 1 % topical gel 1 g topical QID PRN Pain, Moderate 11/03/24 11/03/24 (Arthritis Pain (diclofenac)) docusate sodium 100 mg capsule 100 mg PO 1XD 11/03/24 11/03/24 (Colace) ethambutol 400 mg tablet 400 mg PO 1XD 11/03/24 11/03/24 furosemide 20 mg tablet 20 mg PO DAILY 11/03/24 11/03/24 ivabradine 5 mg tablet 5 mg PO 1XD 11/03/24 11/03/24 lidocaine 5 % topical patch 1 patch topical DAILY 11/03/24 11/04/24 (DermacinRx Lidocan) metoprolol succinate 200 mg 200 mg PO DAILY 11/03/24 11/03/24 tablet,extended release 24 hr (Toprol XL) mometasone 100 mcg/actuation HFA 100 mcg inhalation NEEDED 11/03/24 11/03/24 aerosol inhaler (Asmanex HFA) morphine 15 mg immediate release 15 mg PO NEEDED 11/03/24 11/03/24 tablet nicotine (polacrilex) 4 mg gum 4 mg PO Q2-3H PRN Smoking Cessation 11/03/24 11/03/24 pantoprazole 40 mg tablet,delayed 40 mg PO DAILY 11/03/24 11/03/24 release (Protonix) polyethylene glycol 3350 17 17 g PO BID 11/03/24 11/03/24 gram/dose oral powder (Miralax) sacubitril 97 mg-valsartan 103 mg 1 tab PO 1XD 11/03/24 11/04/24 tablet (Entresto) spironolactone 25 mg tablet 25 mg PO DAILY 11/03/24 11/03/24 (Aldactone) sulfamethoxazole 800 160 tab PO DAILY 11/03/24 11/03/24 mg-trimethoprim 160 mg tablet (Bactrim DS) Previous Rx's ?Medication ?Instructions ?Recorded capsaicin 0.025 % topical cream 1 appl topical TID PRN thigh 11/06/24 muscle pain 30 days #120 grams escitalopram oxalate 20 mg tablet 20 mg PO DAILY 30 days #30 tabs 11/06/24 trazodone 100 mg tablet 100 mg PO BEDTIME 30 days #30 tabs 11/06/24 trazodone 50 mg tablet 50 mg PO BEDTIME PRN Insomnia 30 11/06/24 days #30 tabs Mental Status Exam Mental Status Exam Narrative: General appearance: casually appropriate dress. Good hygiene.? Eye contact: WNL. Musculoskeletal: Normal muscle strength/tone, Normal gait and station, No abnormal involuntary movements like tremors, EPS or dyskinesia. No psychomotor agitation or retardation. Normal posture.??? Manner/behavior: cooperative and not guarded Speech:? Fluent, with normal rate, tone and volume. Language: No receptive or expressive language impairment? Mood: less anxious. Affect: flexible, congruent to mood and without lability? Thought process/associations: Linear with no flight of ideas or loose associations.?? Thought content:?No delusions or paranoia.?? Hallucinations: No auditory, visual or other hallucinations No?flashbacks, nightmares or dissociation? ? Suicidality/self-destructive behavior: None at the hospital.? ? Homicidally/violence: none.? Reliability: good.? ? Judgment: preserved.? ? Insight: preserved Cognition: Alert and oriented to time, place and person. Attention, concentration and fund of knowledge are normal.? Impulse control and emotional regulation: preserved. Intelligence estimate: average.? Data Data Completed and Pending Completed studies during hospitalization [Text1]: 11/04/24 07:57 Sodium 137 Potassium 4.3 Chloride 103 Carbon Dioxide 24 Anion Gap 14 BUN 20 H Creatinine 1.17 Estim Creat Clear Calc 94.8 Estimated GFR > 60 Random Glucose 95 Estimat Average Glucose 91 Hemoglobin A1c % 4.8 Calcium 9.3 Total Bilirubin 0.7 AST 24 ALT 20 Alkaline Phosphatase 82 Total Protein 8.0 Albumin 3.8 Triglycerides 200 H Cholesterol 179 LDL Cholesterol, Calc 112 H HDL Cholesterol 27 L TSH 1.40 DS: Summary Hospital Course Hospital Course: per 11/04 admission note: HPI Subjective Notes: Conditional Voluntary Narrative: 39 yo male, lives with his mother. He is currently on medical leave from work. Patient presented to [facility] with SI with plan to OD on medications. Patient has been increasingly depressed in the last few months. In March he developed a pneumonia and had a lengthy hospitalization at [facility]. During the admission was diagnosed with HIV. He has a cardiomyopathy as well. Since then he has been in and out of the hospital and he has had to be on a medical leave from his work where he worked for 10 years or so. His symptoms include depressed mood, decreased sleep, increased irritability, decreased appetite, anhedonia, and SI. He has had increased anxiety and panic. Denies hallucinations. He was seen in the ED at [facility] and his Lexapro and Trazodone were increased. Since coming into the hospital he reports he is feeling somewhat better and was able to sleep with the increase in Trazodone. Denies current active SI. He has been enrolled in therapy and was recently referred to the psychiatrist at the agency he attends. Past Psychiatric History: No inpatient hospitalizations Engaged in OP therapy Recently referred to outpatient psychiatry No suicide attempts Medical Evaluation Reviewed: Yes PMFSH Family History: Denied Social History: Lives with his mother. Single. Grew up in [place]. Moved to the [facility] [place] ago. Worked at a [employer] for 10 years until the summer when his health deteriorated. On a medical leave. Substance History: Denied Precis: 39 yo man admitted with suicidal ideation with plan to OD in the setting of worsening health and increasing disabling physical symptoms. 11/04: Lexapro recently increased and Trazodone recently increased while he was admitted to the ED at [facility]. Will continue for now. He says he slept better. Social work evaluation. Disposition planning. 11/05: Continue current management and treatment plan. 11/06: stable, safe. meds reviewed, reconciled, prescribed. asking for discharge, planned for tomorrow. 11/07: stable overnight. discharged as per plan. Time Spent with Patient Time attestation: Total time managing care of this patient today __35__ minutes. Discharge Plan Discharge Anticipated Discharge Date/Time: 11/07/24 11:00 Patient Disposition: Home, Self-Care Discharge Diagnosis: Adjustment Disorder MDD HIV cardiomyopathy Referrals: Tammy Soliz (Therapy) [Other] - 11/08/24 11:00 am (IN OFFICE APPOINTMENT -Please bring your insurance card with you to this appointment. ) Meggan Buckley (Psychiatry) [Other] - 12/04/24 3:00 pm (TELEHEALTH APPOINTMENT -Psychiatric Evaluation ) Meggan Buckley (Psychiatry) [Other] - 01/03/25 9:00 am (TELEHEALTH APPOINTMENT -Medication Management ) Evy Kebede MD [Primary Care Provider] - 1 Week (11-06-24 Your primary care physician has been contacted regarding scheduling a follow up appt within 7-10 days of discharge. They will contact either you or us with the date and time of the appt.) Discharge Medications: New trazodone 50 mg Tablet 50 mg PO BEDTIME PRN (Reason: Insomnia) 30 Days Qty: 30 0RF trazodone 100 mg Tablet 100 mg PO BEDTIME 30 Days Qty: 30 0RF escitalopram oxalate 20 mg Tablet 20 mg PO DAILY 30 Days Qty: 30 0RF capsaicin 0.025 % Cream 1 appl topical TID PRN (Reason: thigh muscle pain) 30 Days Qty: 120 0RF Protocol: Apply to: Apply to: thigh muscle Continued amlodipine [Norvasc] 5 mg tablet 5 mg PO DAILY clotrimazole [Clotrimazole AF] 1 % cream 1 appl topical BID azithromycin [Zithromax] 500 mg tablet 500 mg PO DAILY Asmanex HFA 100 mcg/actuation HFA aerosol inhaler 100 mcg INHALATION NEEDED Biktarvy 50-200-25 mg tablet 50 tab PO DAILY metoprolol succinate [Toprol XL] 200 mg tablet extended release 24 hr 200 mg PO DAILY nicotine (polacrilex) 4 mg gum 4 mg PO Q2-3H PRN (Reason: Smoking Cessation) ethambutol 400 mg tablet 400 mg PO 1XD pantoprazole [Protonix] 40 mg tablet,delayed release (DR/EC) 40 mg PO DAILY lidocaine [DermacinRx Lidocan] 5 % adhesive patch,medicated 1 patch topical DAILY docusate sodium [Colace] 100 mg capsule 100 mg PO 1XD furosemide 20 mg tablet 20 mg PO DAILY polyethylene glycol 3350 [Miralax] 17 gram/dose powder 17 g PO BID morphine 15 mg tablet 15 mg PO NEEDED diclofenac sodium [Arthritis Pain (diclofenac)] 1 % gel 1 g topical QID PRN (Reason: Pain, Moderate) ivabradine 5 mg tablet 5 mg PO 1XD dapagliflozin propanediol [Farxiga] 10 mg tablet 10 mg PO DAILY sacubitril-valsartan [Entresto] 97-103 mg tablet 1 tab PO 1XD sulfamethoxazole-trimethoprim [Bactrim DS] 800-160 mg tablet 160 tab PO DAILY spironolactone [Aldactone] 25 mg tablet 25 mg PO DAILY albuterol sulfate [Ventolin HFA] 90 mcg/actuation HFA aerosol inhaler 90 mcg inhalation NEEDED Discontinued escitalopram oxalate [Lexapro] 10 mg tablet 100 mg PO DAILY trazodone 50 mg tablet 50 mg PO BEDTIME Discharge Orders: Discharge Order (Routine); Ordered 11/07/24 Ordered By: Prasanna Castillo Diet: Diabetic diet Activity on Discharge: As tolerated Stand Alone Forms: Patient Portal Discharge page, Community Support Print Language: Turkmen Care Plan Goals: remain safe and stable in the outpatient treatment setting Health Concerns: HIV DM cardiomyopathy Plan of Treatment: take medications as prescribed, attend appointments as scheduled Assessment: not at imminent risk of harm to self or others Discharge Date/Time: 11/07/24 11:00
[2024-11-06] MEDS: Morphine Sulfate Immed Release 15 MG TABLET PO ×2 (15:24→20:05)
[2024-11-06 20:00] VITALS: BP 105/63; PULSE 85; RESP 16; TEMP 37; O2SAT 99
[2024-11-06] MEDS: traZODone HCL 100 MG TABLET PO (21:27)
[2024-11-07] MEDS: traZODone HCL 50 MG TABLET PO (01:57)
[2024-11-07 07:51] VITALS: BP 113/57; PULSE 83; RESP 16; TEMP 37.7; O2SAT 98
[2024-11-07] MEDS: amLODIPine Besylate 5 MG TABLET PO (08:43)
[2024-11-07] MEDS: Azithromycin 500 MG TABLET PO (08:44)
[2024-11-07] MEDS: Bictegrav/Emtricit/Tenofov Ala TABLET 1 TAB PO (08:44)
[2024-11-07] MEDS: Docusate Sodium 100 MG CAPSULE PO (08:44)
[2024-11-07] MEDS: Empagliflozin 10 MG TABLET PO (08:45)
[2024-11-07] MEDS: Escitalopram Oxalate 20 MG TABLET PO (08:45)
[2024-11-07] MEDS: Metoprolol Succinate ER 100 MG TAB.ER.24H 200 MG PO (08:45)
[2024-11-07] MEDS: Furosemide 20 MG TABLET PO (08:45)
[2024-11-07] MEDS: Sacubitril/Valsartan 97/103 1 TAB TABLET PO (08:46)
[2024-11-07] MEDS: Sulfamethox/Trimeth 800/160 TABLET 1 TAB PO (08:46)
[2024-11-07] MEDS: Spironolactone 25 MG TABLET PO (08:46)
[2024-11-07] MEDS: Omeprazole 20 MG CAPSULE.DR PO (08:48)
== END 2024-11-07 11:00 | disposition home or self-care (01) | DRG 751 ==
PROVIDERS: Admitting Provider Psychiatry & Neurology Psychiatry; PCP Internal Medicine; Visit Provider Psychiatry & Neurology Psychiatry
DX: F33.9 Major depressive disorder, recurrent, unspecified (principal); I42.8 Other cardiomyopathies; I11.0 Hypertensive heart disease with heart failure; I50.22 Chronic systolic (congestive) heart failure; Z21 Asymptomatic human immunodeficiency virus [HIV] infection status; R45.851 Suicidal ideations; F43.23 Adjustment disorder with mixed anxiety and depressed mood; Z79.899 Other long term (current) drug therapy
CPT/HCPCS: 36415; 80053; 80061; 83036; 84443

== ENCOUNTER → 2024-11-03 19:21 | Outpatient (BNV) | payer OTHER, SELFPAY | PROVIDERS: Admitting Provider Psychiatry & Neurology Psychiatry; PCP Internal Medicine; Visit Provider Psychiatry & Neurology Psychiatry | DX: F33.9 Major depressive disorder, recurrent, unspecified (principal); F43.23 Adjustment disorder with mixed anxiety and depressed mood | CPT/HCPCS: 99223; 99231; 99232; 99239 ==

== ENCOUNTER → 2024-11-03 19:21 | Outpatient (BNV) | payer OTHER, SELFPAY | PROVIDERS: Admitting Provider Psychiatry & Neurology Psychiatry; PCP Internal Medicine; Visit Provider Internal Medicine | DX: F33.9 Major depressive disorder, recurrent, unspecified (principal); Z21 Asymptomatic human immunodeficiency virus [HIV] infection status; I42.9 Cardiomyopathy, unspecified | CPT/HCPCS: 99223 ==